=== PATIENT | male | born 1980 | race Two or more races ===

== ENCOUNTER 2017-01-22 16:18 | Inpatient (IN) | payer MEDICAID, OTHER ==
[~2017-01-22 16:18] MED LIST: CATAFLAM50 MG PO; FLEXERIL 10MG PO; GLUCOPHAGE1000 M1; KEFLEX500 M1 PO; NO MEDS; TYLENOL325 MG PO; ZESTRIL2.5 M2 PO
[2017-01-22 16:53] LABS: BASO % 0.1 % (0-2); HCT-HEMATOCRIT 51.4 % (36.0-53.5); HGB-HEMOGLOBIN 16.2 gm/dl (13.5-17.0); IMMATURE GRANULOCYTES ABSOLUTE 0.19 tho/cmm (0-0.03); IMMATURE GRANULOCYTES PERCENT 0.7 % (0-0.3); LYMPH % 7.3 % (20-45); MCH (MEAN CORPUSCULAR HGB) 29.9 pg (28.0-32.0); MCHC MEAN CORPUSCULAR HGB CONC 31.5 % (32.0-36.0); MEAN PLATELET VOLUME 10.8 cmc (9.4-12.4); MONO % 5.4 % (0-12); MONOCYTE ABSOLUTE COUNT 1.5 tho/cmm (0.0-1.2); NEUTROPHIL ABSOLUTE COUNT 23.7 tho/cmm (1.6-8.0); NEUTROPHIL-AUTOMATED 23.7 tho/cmm (1.6-8.0); NEUTROPHILS % 86.5 % (40-80); PLATELET COUNT 166 tho/cmm (150-450); RED BLOOD COUNT 5.41 mil/cmm (4.40-5.70); RED CELL DISTRIBUTION WIDTH 17.6 % (12.4-16.4); WHITE BLOOD COUNT 27.3 tho/cmm (4.0-10.0)
[2017-01-22 16:57] LABS: INR 1.5 INR (0.9-1.1); PROTHROMBIN TIME 17.4 SECONDS (9.0-13.6)
[2017-01-22 17:05] LABS: ABG CO2 ARTERIAL 36 mmol/L (21-27); ARTERIAL BLD GAS O2 SATURATION 98 % (95-98); ARTERIAL PO2 127 mmHg (70-100); BICARBONATE 34 mmol/L (21-28); BLOOD GAS BASE EXCESS 4 mM/L (-/+3); PH 7.26 Units (7.35-7.45)
[2017-01-22 17:07] LABS: ALB/GLOB RATIO 0.4 (0.8-2.0); ALBUMIN 2.5 g/dl (3.5-5.0); ALKALINE PHOSPHATASE 91 U/L (33-138); ALT/SGPT 62 U/L (12-78); BILIRUBIN,TOTAL 2.7 mg/dl (0.0-1.5); BLOOD UREA NITROGEN 39 mg/dl (6-24); CALCIUM 7.9 mg/dl (8.5-10.5); CARBON DIOXIDE-VENOUS 34 mmol/L (22-32); CHLORIDE 92 mmol/l (96-110); CREATININE 1.79 mg/dl (0.60-1.30); GLUCOSE 190 mg/dL (70-110); SODIUM 131 mmol/L (135-145); eGFR VALUE FOR BLACK 55 mL/Min
[2017-01-22 17:07] LABS: ARTERIAL BLOOD GAS PCO2 78 mmHg (32-45)
[2017-01-22 17:08] LABS: ANION GAP 10 mmol/L (0-20); AST/SGOT 63 U/L (10-40); POTASSIUM 4.6 mmol/L (3.7-5.1)
[2017-01-22 17:36] LABS: URINE APPEARANCE CLOUDY; URINE BILIRUBIN MODERATE (NEG); URINE BLOOD MODERATE (NEG); URINE COLOR BROWN; URINE GLUCOSE (UA) NEGATIVE (NEG); URINE KETONE SMALL (NEG); URINE LEUKOCYTE ESTERASE POSITIVE (NEG); URINE NITRITE POSITIVE (NEG); URINE PROTEIN LARGE (NEG)
[2017-01-22 17:48] LABS: URINE AMORPHOUS 3+; URINE BACTERIA 1+
[2017-01-22 17:51] LABS: PROCALCITONIN 17.04 ng/ml (0.05-0.09)
[2017-01-22 18:38] LABS: ABG CO2 ARTERIAL 36 mmol/L (21-27); ARTERIAL BLD GAS O2 SATURATION 99 % (95-98); ARTERIAL PO2 138 mmHg (70-100); BICARBONATE 34 mmol/L (21-28); BLOOD GAS BASE EXCESS 5 mM/L (-/+3); PH 7.29 Units (7.35-7.45)
[2017-01-22 18:39] LABS: ARTERIAL BLOOD GAS PCO2 73 mmHg (32-45)
[2017-01-22] MEDS ORDERED: ZESTORETIC 20-1 EAC4 PO (19:00)
[2017-01-22] MEDS ORDERED: AMARYL2 M1 PO (19:01)
[2017-01-22] MEDS ORDERED: ZOCOR40 M1 PO (19:02)
[2017-01-22 20:12] LABS: ABG CO2 ARTERIAL 33 mmol/L (21-27); ARTERIAL BLD GAS O2 SATURATION 92 % (95-98); ARTERIAL BLOOD GAS PCO2 65 mmHg (32-45); ARTERIAL PO2 69 mmHg (70-100); BICARBONATE 31 mmol/L (21-28); BLOOD GAS BASE EXCESS 3 mM/L (-/+3)
[2017-01-22 21:32] LABS: ABG CO2 ARTERIAL 33 mmol/L (21-27); ARTERIAL BLD GAS O2 SATURATION 93 % (95-98); ARTERIAL BLOOD GAS PCO2 68 mmHg (32-45); ARTERIAL PO2 73 mmHg (70-100); BICARBONATE 31 mmol/L (21-28); BLOOD GAS BASE EXCESS 2 mM/L (-/+3); PH 7.28 Units (7.35-7.45)
[2017-01-22 22:43] LABS: CKMB 1.5 ng/ml (<3.6)
[2017-01-22 23:44] LABS: C-REACTIVE PROTEIN 36.5 mg/dl (0-0.9)
[2017-01-23 04:16] LABS: BASO % 0.1 % (0-2); HCT-HEMATOCRIT 46.4 % (36.0-53.5); HGB-HEMOGLOBIN 14.4 gm/dl (13.5-17.0); IMMATURE GRANULOCYTES ABSOLUTE 0.11 tho/cmm (0-0.03); IMMATURE GRANULOCYTES PERCENT 0.5 % (0-0.3); LYMPH % 6.4 % (20-45); LYMPH ABSOLUTE COUNT 1.6 tho/cmm (0.8-4.5); MCH (MEAN CORPUSCULAR HGB) 29.8 pg (28.0-32.0); MCV (MEAN CELL VOLUME) 96.1 fl (82.0-96.0); MONO % 5.6 % (0-12); MONOCYTE ABSOLUTE COUNT 1.4 tho/cmm (0.0-1.2); NEUTROPHIL ABSOLUTE COUNT 21.3 tho/cmm (1.6-8.0); NEUTROPHIL-AUTOMATED 21.3 tho/cmm (1.6-8.0); NEUTROPHILS % 87.4 % (40-80); PLATELET COUNT 177 tho/cmm (150-450); RED BLOOD COUNT 4.83 mil/cmm (4.40-5.70); RED CELL DISTRIBUTION WIDTH 17.5 % (12.4-16.4); WHITE BLOOD COUNT 24.3 tho/cmm (4.0-10.0)
[2017-01-23 04:29] LABS: ABG CO2 ARTERIAL 33 mmol/L (21-27); ARTERIAL BLD GAS O2 SATURATION 95 % (95-98); BICARBONATE 31 mmol/L (21-28); BLOOD GAS BASE EXCESS 0 mM/L (-/+3)
[2017-01-23 04:30] LABS: ALB/GLOB RATIO 0.4 (0.8-2.0); ALBUMIN 2.4 g/dl (3.5-5.0); ALKALINE PHOSPHATASE 72 U/L (33-138); ALT/SGPT 52 U/L (12-78); BILIRUBIN,TOTAL 3.1 mg/dl (0.0-1.5); BLOOD UREA NITROGEN 39 mg/dl (6-24); CALCIUM 6.9 mg/dl (8.5-10.5); CARBON DIOXIDE-VENOUS 30 mmol/L (22-32); CHLORIDE 99 mmol/l (96-110); CREATININE 1.82 mg/dl (0.60-1.30); GLUCOSE 135 mg/dL (70-110); PHOSPHOROUS 3.8 mg/dl (2.5-4.9); SODIUM 134 mmol/L (135-145); eGFR VALUE FOR BLACK 54 mL/Min
[2017-01-23 04:32] LABS: PH 7.19 Units (7.35-7.45)
[2017-01-23 04:33] LABS: ARTERIAL BLOOD GAS PCO2 84 mmHg (32-45); ARTERIAL PO2 91 mmHg (70-100)
[2017-01-23 04:35] LABS: ANION GAP 10 mmol/L (0-20); AST/SGOT 59 U/L (10-40); MAGNESIUM 1.7 mg/dl (1.3-2.6); POTASSIUM 4.6 mmol/L (3.7-5.1)
[2017-01-23 04:36] LABS: TSH-THYROID STIMULATING HORM. 1.15 uIU/ml (0.40-3.80)
[2017-01-23 05:12] LABS: ABG CO2 ARTERIAL 31 mmol/L (21-27); ARTERIAL BLD GAS O2 SATURATION 96 % (95-98); ARTERIAL BLOOD GAS PCO2 67 mmHg (32-45); ARTERIAL PO2 86 mmHg (70-100); BICARBONATE 29 mmol/L (21-28); BLOOD GAS BASE EXCESS 1 mM/L (-/+3); PH 7.26 Units (7.35-7.45)
[2017-01-23 06:07] LABS: ABG CO2 ARTERIAL 31 mmol/L (21-27); ARTERIAL BLD GAS O2 SATURATION 97 % (95-98); ARTERIAL BLOOD GAS PCO2 68 mmHg (32-45); BICARBONATE 29 mmol/L (21-28); BLOOD GAS BASE EXCESS 0 mM/L (-/+3); PH 7.25 Units (7.35-7.45)
[2017-01-23 06:09] LABS: ARTERIAL PO2 100 mmHg (70-100)
[2017-01-23 12:24] LABS: ABG CO2 ARTERIAL 30 mmol/L (21-27); ARTERIAL BLD GAS O2 SATURATION 95 % (95-98); ARTERIAL BLOOD GAS PCO2 68 mmHg (32-45); ARTERIAL PO2 84 mmHg (70-100); BICARBONATE 28 mmol/L (21-28); BLOOD GAS BASE EXCESS -1 mM/L (-/+3); PH 7.24 Units (7.35-7.45)
[2017-01-24 03:56] LABS: BASO % 0.2 % (0-2); HCT-HEMATOCRIT 47.2 % (36.0-53.5); HGB-HEMOGLOBIN 14.7 gm/dl (13.5-17.0); IMMATURE GRANULOCYTES ABSOLUTE 0.09 tho/cmm (0-0.03); IMMATURE GRANULOCYTES PERCENT 0.6 % (0-0.3); LYMPH % 4.4 % (20-45); LYMPH ABSOLUTE COUNT 0.7 tho/cmm (0.8-4.5); MCH (MEAN CORPUSCULAR HGB) 29.5 pg (28.0-32.0); MCHC MEAN CORPUSCULAR HGB CONC 31.1 % (32.0-36.0); MCV (MEAN CELL VOLUME) 94.8 fl (82.0-96.0); MEAN PLATELET VOLUME 11.2 cmc (9.4-12.4); MONOCYTE ABSOLUTE COUNT 0.7 tho/cmm (0.0-1.2); NEUTROPHIL ABSOLUTE COUNT 14.8 tho/cmm (1.6-8.0); NEUTROPHIL-AUTOMATED 14.8 tho/cmm (1.6-8.0); NEUTROPHILS % 90.8 % (40-80); PLATELET COUNT 136 tho/cmm (150-450); RED BLOOD COUNT 4.98 mil/cmm (4.40-5.70); RED CELL DISTRIBUTION WIDTH 17.3 % (12.4-16.4); WHITE BLOOD COUNT 16.3 tho/cmm (4.0-10.0)
[2017-01-24 04:19] LABS: ABG CO2 ARTERIAL 30 mmol/L (21-27); ARTERIAL BLD GAS O2 SATURATION 96 % (95-98); ARTERIAL BLOOD GAS PCO2 63 mmHg (32-45); ARTERIAL PO2 83 mmHg (70-100); BICARBONATE 28 mmol/L (21-28); BLOOD GAS BASE EXCESS 0 mM/L (-/+3); PH 7.27 Units (7.35-7.45)
[2017-01-24 04:21] LABS: ALB/GLOB RATIO 0.3 (0.8-2.0); ALBUMIN 2.1 g/dl (3.5-5.0); ALKALINE PHOSPHATASE 76 U/L (33-138); ALT/SGPT 50 U/L (12-78); BLOOD UREA NITROGEN 42 mg/dl (6-24); CALCIUM 7.4 mg/dl (8.5-10.5); CARBON DIOXIDE-VENOUS 27 mmol/L (22-32); CHLORIDE 100 mmol/l (96-110); CREATININE 1.99 mg/dl (0.60-1.30); SODIUM 134 mmol/L (135-145); eGFR VALUE FOR BLACK 48 mL/Min
[2017-01-24 04:52] LABS: ANION GAP 12 mmol/L (0-20); AST/SGOT 43 U/L (10-40); GLUCOSE 205 mg/dL (70-110); POTASSIUM 5.1 mmol/L (3.7-5.1)
[2017-01-24 16:39] LABS: ABG CO2 ARTERIAL 30 mmol/L (21-27); ARTERIAL BLD GAS O2 SATURATION 95 % (95-98); ARTERIAL BLOOD GAS PCO2 61 mmHg (32-45); ARTERIAL PO2 85 mmHg (70-100); BICARBONATE 28 mmol/L (21-28); BLOOD GAS BASE EXCESS 0 mM/L (-/+3); PH 7.28 Units (7.35-7.45)
[2017-01-24 22:26] LABS: C-REACTIVE PROTEIN 14.8 mg/dl (0-0.9)
[2017-01-24 23:03] LABS: PROCALCITONIN 5.46 ng/ml (0.05-0.09)
[2017-01-25 05:12] LABS: ABG CO2 ARTERIAL 31 mmol/L (21-27); ARTERIAL BLD GAS O2 SATURATION 95 % (95-98); ARTERIAL BLOOD GAS PCO2 64 mmHg (32-45); ARTERIAL PO2 77 mmHg (70-100); BICARBONATE 30 mmol/L (21-28); BLOOD GAS BASE EXCESS 1 mM/L (-/+3); PH 7.29 Units (7.35-7.45)
[2017-01-25 05:33] LABS: BASO % 0.2 % (0-2); EOS % 0.1 % (0-7); HCT-HEMATOCRIT 47.6 % (36.0-53.5); HGB-HEMOGLOBIN 14.9 gm/dl (13.5-17.0); IMMATURE GRANULOCYTES ABSOLUTE 0.12 tho/cmm (0-0.03); IMMATURE GRANULOCYTES PERCENT 0.9 % (0-0.3); LYMPH % 4.8 % (20-45); LYMPH ABSOLUTE COUNT 0.6 tho/cmm (0.8-4.5); MCH (MEAN CORPUSCULAR HGB) 29.6 pg (28.0-32.0); MCHC MEAN CORPUSCULAR HGB CONC 31.3 % (32.0-36.0); MCV (MEAN CELL VOLUME) 94.6 fl (82.0-96.0); MEAN PLATELET VOLUME 11.1 cmc (9.4-12.4); MONO % 6.9 % (0-12); MONOCYTE ABSOLUTE COUNT 0.9 tho/cmm (0.0-1.2); NEUTROPHILS % 87.1 % (40-80); PLATELET COUNT 136 tho/cmm (150-450); RED BLOOD COUNT 5.03 mil/cmm (4.40-5.70); RED CELL DISTRIBUTION WIDTH 16.8 % (12.4-16.4); WHITE BLOOD COUNT 12.7 tho/cmm (4.0-10.0)
[2017-01-25 05:56] LABS: ALB/GLOB RATIO 0.3 (0.8-2.0); ALBUMIN 1.9 g/dl (3.5-5.0); ALKALINE PHOSPHATASE 66 U/L (33-138); ALT/SGPT 44 U/L (12-78); BLOOD UREA NITROGEN 47 mg/dl (6-24); C-REACTIVE PROTEIN 13.7 mg/dl (0-0.9); CARBON DIOXIDE-VENOUS 29 mmol/L (22-32); CHLORIDE 102 mmol/l (96-110); CREATININE 2.07 mg/dl (0.60-1.30); GLUCOSE 283 mg/dL (70-110); PREALBUMIN 6.8 mg/dl (20.0-40.0); SODIUM 136 mmol/L (135-145); eGFR VALUE FOR BLACK 46 mL/Min
[2017-01-25 06:02] LABS: ANION GAP 11 mmol/L (0-20); BILIRUBIN,TOTAL 1.1 mg/dl (0.0-1.5)
[2017-01-25 06:03] LABS: AST/SGOT 36 U/L (10-40); POTASSIUM 5.5 mmol/L (3.7-5.1)
[2017-01-25 06:38] LABS: PROCALCITONIN 4.63 ng/ml (0.05-0.09)
[2017-01-26 01:17] LABS: URINE PRT/CR RATIO 0.74 Ratio (0.0-0.20); URINE TOTAL PROTEIN-RANDOM 34.3 mg/dl (<11.8)
[2017-01-26 05:06] LABS: BASO % 0.2 % (0-2); HCT-HEMATOCRIT 47.8 % (36.0-53.5); HGB-HEMOGLOBIN 14.7 gm/dl (13.5-17.0); IMMATURE GRANULOCYTES PERCENT 0.9 % (0-0.3); LYMPH % 6.6 % (20-45); LYMPH ABSOLUTE COUNT 0.8 tho/cmm (0.8-4.5); MCH (MEAN CORPUSCULAR HGB) 29.3 pg (28.0-32.0); MCHC MEAN CORPUSCULAR HGB CONC 30.8 % (32.0-36.0); MCV (MEAN CELL VOLUME) 95.4 fl (82.0-96.0); MEAN PLATELET VOLUME 11.2 cmc (9.4-12.4); MONO % 9.7 % (0-12); MONOCYTE ABSOLUTE COUNT 1.1 tho/cmm (0.0-1.2); NEUTROPHIL ABSOLUTE COUNT 9.5 tho/cmm (1.6-8.0); NEUTROPHIL-AUTOMATED 9.5 tho/cmm (1.6-8.0); NEUTROPHILS % 82.6 % (40-80); PLATELET COUNT 150 tho/cmm (150-450); RED BLOOD COUNT 5.01 mil/cmm (4.40-5.70); RED CELL DISTRIBUTION WIDTH 16.7 % (12.4-16.4); WHITE BLOOD COUNT 11.5 tho/cmm (4.0-10.0)
[2017-01-26 05:29] LABS: ANION GAP 11 mmol/L (0-20); BLOOD UREA NITROGEN 45 mg/dl (6-24); C-REACTIVE PROTEIN 7.1 mg/dl (0-0.9); CARBON DIOXIDE-VENOUS 30 mmol/L (22-32); CHLORIDE 103 mmol/l (96-110); CREATININE 2.02 mg/dl (0.60-1.30); GLUCOSE 302 mg/dL (70-110); SODIUM 139 mmol/L (135-145); eGFR VALUE FOR BLACK 47 mL/Min
[2017-01-26 05:38] LABS: POTASSIUM 4.8 mmol/L (3.7-5.1)
[2017-01-26 06:53] LABS: PROCALCITONIN 2.08 ng/ml (0.05-0.09)
[2017-01-27 05:20] LABS: ANION GAP 9 mmol/L (0-20); BLOOD UREA NITROGEN 40 mg/dl (6-24); CALCIUM 8.1 mg/dl (8.5-10.5); CARBON DIOXIDE-VENOUS 32 mmol/L (22-32); CHLORIDE 102 mmol/l (96-110); GLUCOSE 187 mg/dL (70-110); PHOSPHOROUS 2.3 mg/dl (2.5-4.9); SODIUM 139 mmol/L (135-145); eGFR VALUE FOR BLACK 55 mL/Min
[2017-01-27 05:28] LABS: POTASSIUM 4.2 mmol/L (3.7-5.1)
[2017-01-27 06:13] LABS: ABG CO2 ARTERIAL 36 mmol/L (21-27); ARTERIAL BLD GAS O2 SATURATION 97 % (95-98); ARTERIAL BLOOD GAS PCO2 59 mmHg (32-45); ARTERIAL PO2 88 mmHg (70-100); BICARBONATE 34 mmol/L (21-28); BLOOD GAS BASE EXCESS 7 mM/L (-/+3); PH 7.38 Units (7.35-7.45)
[2017-01-28 05:46] LABS: ARTERIAL BLD GAS O2 SATURATION 93 % (95-98); BICARBONATE 38 mmol/L (21-28); BLOOD GAS BASE EXCESS 9 mM/L (-/+3); PH 7.35 Units (7.35-7.45)
[2017-01-28 05:47] LABS: ARTERIAL BLOOD GAS PCO2 70 mmHg (32-45); ARTERIAL PO2 69 mmHg (70-100)
[2017-01-28 05:48] LABS: ABG CO2 ARTERIAL 40 mmol/L (21-27)
[2017-01-28 06:04] LABS: EOS % 2.2 % (0-7); EOSINOPHIL ABSOLUTE COUNT 0.2 tho/cmm (0.0-0.7); HCT-HEMATOCRIT 53.3 % (36.0-53.5); HGB-HEMOGLOBIN 16.5 gm/dl (13.5-17.0); IMMATURE GRANULOCYTES ABSOLUTE 0.06 tho/cmm (0-0.03); IMMATURE GRANULOCYTES PERCENT 0.7 % (0-0.3); LYMPH % 11.4 % (20-45); MCH (MEAN CORPUSCULAR HGB) 29.5 pg (28.0-32.0); MCV (MEAN CELL VOLUME) 95.2 fl (82.0-96.0); MEAN PLATELET VOLUME 9.9 cmc (9.4-12.4); MONO % 7.7 % (0-12); MONOCYTE ABSOLUTE COUNT 0.7 tho/cmm (0.0-1.2); NEUTROPHIL ABSOLUTE COUNT 6.8 tho/cmm (1.6-8.0); NEUTROPHIL-AUTOMATED 6.8 tho/cmm (1.6-8.0); PLATELET COUNT 148 tho/cmm (150-450); RED CELL DISTRIBUTION WIDTH 16.2 % (12.4-16.4); WHITE BLOOD COUNT 8.8 tho/cmm (4.0-10.0)
[2017-01-28 06:14] LABS: ANION GAP 6 mmol/L (0-20); BLOOD UREA NITROGEN 34 mg/dl (6-24); CALCIUM 8.5 mg/dl (8.5-10.5); CARBON DIOXIDE-VENOUS 37 mmol/L (22-32); CHLORIDE 102 mmol/l (96-110); CREATININE 1.73 mg/dl (0.60-1.30); GLUCOSE 119 mg/dL (70-110); POTASSIUM 4.2 mmol/L (3.7-5.1); SODIUM 141 mmol/L (135-145); eGFR VALUE FOR BLACK 57 mL/Min
[2017-01-29 06:22] LABS: BASO % 0.1 % (0-2); EOS % 3.2 % (0-7); EOSINOPHIL ABSOLUTE COUNT 0.3 tho/cmm (0.0-0.7); HCT-HEMATOCRIT 50.1 % (36.0-53.5); HGB-HEMOGLOBIN 15.5 gm/dl (13.5-17.0); IMMATURE GRANULOCYTES ABSOLUTE 0.04 tho/cmm (0-0.03); IMMATURE GRANULOCYTES PERCENT 0.5 % (0-0.3); LYMPH % 13.1 % (20-45); LYMPH ABSOLUTE COUNT 1.1 tho/cmm (0.8-4.5); MCH (MEAN CORPUSCULAR HGB) 29.2 pg (28.0-32.0); MCHC MEAN CORPUSCULAR HGB CONC 30.9 % (32.0-36.0); MCV (MEAN CELL VOLUME) 94.5 fl (82.0-96.0); MEAN PLATELET VOLUME 10.3 cmc (9.4-12.4); MONO % 8.1 % (0-12); MONOCYTE ABSOLUTE COUNT 0.7 tho/cmm (0.0-1.2); PLATELET COUNT 160 tho/cmm (150-450); RED CELL DISTRIBUTION WIDTH 15.9 % (12.4-16.4)
[2017-01-29 06:34] LABS: ALBUMIN 1.9 g/dl (3.5-5.0); ANION GAP 8 mmol/L (0-20); BLOOD UREA NITROGEN 26 mg/dl (6-24); C-REACTIVE PROTEIN 4.1 mg/dl (0-0.9); CALCIUM 8.4 mg/dl (8.5-10.5); CARBON DIOXIDE-VENOUS 38 mmol/L (22-32); CHLORIDE 100 mmol/l (96-110); GLUCOSE 94 mg/dL (70-110); PHOSPHOROUS 3.7 mg/dl (2.5-4.9); SODIUM 142 mmol/L (135-145)
[2017-01-29 07:18] LABS: CREATININE 1.69 mg/dl (0.60-1.30); eGFR VALUE FOR BLACK 59 mL/Min
[2017-01-30 04:31] LABS: BASO % 0.1 % (0-2); EOS % 3.1 % (0-7); EOSINOPHIL ABSOLUTE COUNT 0.3 tho/cmm (0.0-0.7); HCT-HEMATOCRIT 49.3 % (36.0-53.5); HGB-HEMOGLOBIN 15.6 gm/dl (13.5-17.0); IMMATURE GRANULOCYTES ABSOLUTE 0.03 tho/cmm (0-0.03); IMMATURE GRANULOCYTES PERCENT 0.4 % (0-0.3); LYMPH ABSOLUTE COUNT 1.5 tho/cmm (0.8-4.5); MCH (MEAN CORPUSCULAR HGB) 29.5 pg (28.0-32.0); MCHC MEAN CORPUSCULAR HGB CONC 31.6 % (32.0-36.0); MCV (MEAN CELL VOLUME) 93.2 fl (82.0-96.0); MEAN PLATELET VOLUME 9.5 cmc (9.4-12.4); MONO % 8.5 % (0-12); MONOCYTE ABSOLUTE COUNT 0.7 tho/cmm (0.0-1.2); NEUTROPHIL ABSOLUTE COUNT 5.9 tho/cmm (1.6-8.0); NEUTROPHIL-AUTOMATED 5.9 tho/cmm (1.6-8.0); NEUTROPHILS % 69.9 % (40-80); PLATELET COUNT 179 tho/cmm (150-450); RED BLOOD COUNT 5.29 mil/cmm (4.40-5.70); RED CELL DISTRIBUTION WIDTH 15.8 % (12.4-16.4); WHITE BLOOD COUNT 8.5 tho/cmm (4.0-10.0)
[2017-01-30 04:42] LABS: ALBUMIN 2.2 g/dl (3.5-5.0); ANION GAP 9 mmol/L (0-20); BLOOD UREA NITROGEN 22 mg/dl (6-24); C-REACTIVE PROTEIN 4.5 mg/dl (0-0.9); CALCIUM 8.5 mg/dl (8.5-10.5); CARBON DIOXIDE-VENOUS 39 mmol/L (22-32); CHLORIDE 98 mmol/l (96-110); CREATININE 1.88 mg/dl (0.60-1.30); GLUCOSE 71 mg/dL (70-110); SODIUM 142 mmol/L (135-145); eGFR VALUE FOR BLACK 52 mL/Min
[2017-01-30 04:46] LABS: POTASSIUM 3.8 mmol/L (3.7-5.1)
[2017-01-30 04:52] LABS: ARTERIAL BLD GAS O2 SATURATION 95 % (95-98); ARTERIAL PO2 72 mmHg (70-100); BICARBONATE 39 mmol/L (21-28); BLOOD GAS BASE EXCESS 13 mM/L (-/+3); PH 7.48 Units (7.35-7.45)
[2017-01-30 04:54] LABS: ARTERIAL BLOOD GAS PCO2 53 mmHg (32-45)
[2017-01-30 04:58] LABS: ABG CO2 ARTERIAL 41 mmol/L (21-27)
[2017-01-30] MEDS ORDERED: DULERA 200 MCG/13 G1 INH (11:50)
[2017-01-30] MEDS ORDERED: PROTONIX40 M2 PO (11:52)
[2017-01-30] MEDS ORDERED: SULFAMYLON60 GM TOP (11:55)
[2017-01-30] MEDS ORDERED: AUGMENTIN 875-1 EAC2 PO (15:58)
[2017-07-28] MEDS ORDERED: GLUCOPHAGE1000 M1 PO (23:41)
== END 2017-01-30 18:05 | DRG 871 ==
LOC: EDMED 16:18 → EMR2 19:52 → CCU 20:20 → PCUA 01-25 18:00 → PCUB 01-27 12:15
PROVIDERS: Emergency Medicine; Internal Medicine; Internal Medicine Cardiovascular Disease; Internal Medicine Critical Care Medicine; Internal Medicine Infectious Disease; Internal Medicine Nephrology; Internal Medicine Pulmonary Disease; ADMIT Hospitalist
PROC: 5A09457 Assistance with Respiratory Ventilation, 24-96 Consecutive Hours, Continuous Positive Airway Pressure (ICD-10-PCS; principal; 2017-01-22)
DX: A41.9 Sepsis, unspecified organism (principal); R65.21 Severe sepsis with septic shock; N17.9 Acute kidney failure, unspecified; J96.01 Acute respiratory failure with hypoxia; J96.02 Acute respiratory failure with hypercapnia; E11.22 Type 2 diabetes mellitus with diabetic chronic kidney disease; L89.153 Pressure ulcer of sacral region, stage 3; E87.4 Mixed disorder of acid-base balance; J12.3 Human metapneumovirus pneumonia; L03.116 Cellulitis of left lower limb; E66.2 Morbid (severe) obesity with alveolar hypoventilation; N39.0 Urinary tract infection, site not specified; Z68.44 Body mass index [BMI] 60.0-69.9, adult; N18.9 Chronic kidney disease, unspecified; J02.0 Streptococcal pharyngitis; I87.2 Venous insufficiency (chronic) (peripheral); I89.0 Lymphedema, not elsewhere classified; Z91.14 Patient's other noncompliance with medication regimen; Z79.899 Other long term (current) drug therapy
CPT/HCPCS: C1751; G0009; J1650; J1815; J1956; J2543; J2920; J3370; J7030; J7040; J7050; P9045